=== PATIENT | male | born 1960 | race Caucasian/White ===

== ENCOUNTER 2020-08-26 11:30 | Emergency (ER) | payer OTHER ==
[~2020-08-26] VITALS: Ht 180.3 cm; Wt 81.7 kg
[2020-08-26] MEDS ORDERED: PROAIR HFA8.5 GM INH (13:03)
[2020-08-26] MEDS ORDERED: ZPAK PO (13:03)
[2020-08-26] MEDS ORDERED: PREDNISONE 20 M20 MG PO (13:03)
[2020-08-26 13:34] VITALS: BP 129/86
== END 2020-08-26 13:35 | disposition home or self-care (01) ==
LOC: M.ERS 11:30
DX: U07.1 COVID-19 (principal); J22 Unspecified acute lower respiratory infection